=== PATIENT | male | born 1990 | race African-American/Black ===

== ENCOUNTER 2021-03-15 09:34 | Day surgery (SDC) | payer OTHER, SELFPAY ==
[~2021-03-15] VITALS: Ht 177.8 cm; Wt 68.0 kg
[2021-03-15] MEDS ORDERED: fentaNYL citrate 0.05 MG/ML VIAL ONE (12:11)
[2021-03-15] MEDS ORDERED: MIDAZOLAM 5 MG/5 ML VIAL ONE (12:11)
[2021-03-15] MEDS ORDERED: LIDOCAINE 2% 100 MG/5 ML UJET TP ONE (12:12)
[2021-03-15] MEDS ORDERED: ONDANSETRON 4 MG TAB PO PRN (13:40)
[2021-03-15] MEDS ORDERED: ONDANSETRON 4 MG TAB ONE (13:43)
[2021-03-15] MEDS ORDERED: ONDANSETRON 4 MG TAB PO ONE (13:45)
[2021-03-15] MEDS ORDERED: MIDAZOLAM 2 MG/2 ML VIAL IVP ONE (15:05)
== END 2021-03-15 14:15 | disposition home or self-care (01) ==
LOC: MOR 09:34 → MMU 09:34 → MOR 14:15
PROVIDERS: ATTEND Internal Medicine Gastroenterology
DX: R11.2 Nausea with vomiting, unspecified (principal); R10.9 Unspecified abdominal pain; Z88.0 Allergy status to penicillin
CPT/HCPCS: 43235; 45330; 87426; J2250; Q0162; J3010